=== PATIENT | female | born 1935 | race Caucasian/White ===

== ENCOUNTER 2021-01-25 00:59 | Emergency (ER) | payer MEDICARE, OTHER ==
[~2021-01-25] VITALS: Ht 162.6 cm; Wt 63.5 kg
[~2021-01-25 00:59] MED LIST: ACID CONTROL150 MG PO; ADULT LOW DOSE81 MG PO; ATIVAN1 MG PO; BENAZEPRIL HCL5 MG PO; CALCIUM + D SO1 EACH PO; CLARITIN10 MG PO; FLONASE ALLERG9.9 ML; STOOL SOFTENER1 EAC2 PO; TAZTIA XT240 MG PO
--- OUTSIDE RECORDS SUMMARY | 2021-01-25 01:02 | XMS ---
PreManage Notification: RENATE PHILLIPS Security Stiff Neck Loader Events No recent Security Events currently on file CRITERIA MET - SAIDAP CARE PROVIDERS EDUARD Guerra [facility] Current PHONE: [phone] NIELS TORRES Nurse Practitioner Current PHONE: [phone] aZk has no Care Guidelines for this patient. [place] VISIT COUNT (12 MO.) Minal Fang TOTAL 1 NOTE: Visits indicate total known visits. 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
[2021-01-25] MEDS ORDERED: SOTALOL80 MG PO (01:17)
[2021-01-25] MEDS ORDERED: TORSEMIDE10 MG PO (01:18)
[2021-01-25] MEDS ORDERED: FAMOTIDINE20 MG PO (01:18)
[2021-01-25] MEDS ORDERED: AMLODIPINE BESYL5 MG PO (01:18)
== END 2021-01-25 03:48 | disposition short-term general hospital (02) ==
LOC: ED 00:59
DX: S72.012A Unspecified intracapsular fracture of left femur, initial encounter for closed fracture (principal); W18.30XA Fall on same level, unspecified, initial encounter; I10 Essential (primary) hypertension; Z79.899 Other long term (current) drug therapy; Z20.822 Contact with and (suspected) exposure to COVID-19
CPT/HCPCS: 51702; 73502; 80053; 81001; 85025; 85610; 85730; 99284-25; C9803; J1170; J2405; U0003

== ENCOUNTER 2021-06-25 16:14 | Inpatient (IN) | payer MEDICARE, OTHER ==
[~2021-06-25] VITALS: Ht 162.6 cm; Wt 57.3 kg
[~2021-06-25 16:14] MED LIST changes: +AMLODIPINE BESYL5 MG PO; +FAMOTIDINE20 MG PO; +SOTALOL80 MG PO; +TORSEMIDE10 MG PO
--- OUTSIDE RECORDS SUMMARY | 2021-06-25 16:16 | XMS ---
PreManage Notification: RENATE PHILLIPS Security Burrer Machine Events No recent Security Events currently on file CRITERIA MET - PDMP CARE PROVIDERS JES VALDES Crime Investigator Special Agent Current STEPH Busby PHONE: [phone] EDUARD Guerra [facility] Current PHONE: [phone] ERICA DINH Internal Medicine Current PHONE: Unknown NEERU RILEY Nurse Practitioner Current PHONE: [phone] NIELS TORRES Nurse Practitioner Current PHONE: Unknown MARY EPSTEIN Nurse Practitioner: Family Current PHONE: Unknown BOB NORWOOD Internal Medicine Current PHONE: [phone] ЕКАТЕРИНА MARTINEZ I. Physician Ground Operations Supervisor Current PHONE: Unknown URSULA Nurse Amelia JANG PHONE: [phone] [facility] PHONE: [phone] Zak has no Care Guidelines for this patient. [place] VISIT COUNT (12 MO.) [address] [facility] TOTAL 2 NOTE: Visits indicate total known visits. ED/UCC VISIT TRACKING (12 MO.) 06/25/2021 16:14 VER[facility]NICA [facility]azares [place] TYPE: Emergency COMPLAINT: - GLF 01/25/2021 01:00 VER[facility]NICA C[facility]ares [place] TYPE: Emergency COMPLAINT: - FALL DIAGNOSES: - Other rodent exterminator (current) drug therapy - Fall on same level, unspecified, initial encounter - Essential (primary) hypertension - Unspecified intracapsular fracture of left femur, initial encounter for closed fracture INPATIENT VISIT TRACKING (12 MO.) 02/10/2021 08:53 Carter [facility] [place] TYPE: Surgery DIAGNOSES: - Fracture of unspecified part of neck of left femur, initial encounter for closed fracture - Pain in left hip - Displaced fracture of base of neck of left femur, sequela 01/25/2021 04:42 Carter [facility] TYPE: Inpatient DIAGNOSES: - Left hip fracture - Anxiety disorder, unspecified [id number]
--- NOTE | 2021-06-25 20:15 | NUR ---
PATIENT ARRIVED TO THE UNIT VIA STRETCHER. UNABLE TO MOVE TO BED INDEPENDENTLY. 3PA TO MOVE TO BED. PATIENT UNABLE TO TOLERATED HOB LESS THAN 30 DEGREES. ORIENTED TO PERSON AND PLACE, NOT DATE OR ALL EVENTS LEADING TO ED VISIT. REQUIRES 2L NC, WITH O2 SATS 92-94%. LUNG SOUNDS ARE CLEAR IN UPPER, COARSE CRACKLES IN MID AND LOWER LOBES. HR 80-90'S, PACED. SCHEDULED MEDS PROVIDED WITH PRN TYLNEOL AND MELETONIN PER PATIENT REQUEST. CHRONIC MID/UPPER BACK PAIN NOTED.
--- NOTE | 2021-06-25 21:00 | NUR ---
PATIENT REPORTS BEING MOSTLY INCONTINENT AT BASELINE. PANTS AND THIGH HIGH TEDHOSE REMOVED. PATIENT HAS UNDERWEAR UNDER HER ATTEND, BOTH ARE MODERATELY WET WITH URINE. SMALL PEA SIZED SORE NOTED TO THE LEFT OF HER ISMA AREA. TOTAL AREA IS RED AND STRONG URINE SMELL NOTED. PATIENT HAS 4+ PITTING EDEMA FROM HIPS TO HER FEET. DEPENDENT EDEMA ON HER BACK AND ARMS. CRACKLES IN HER LUNGS. DISCUSSED WITH DR. BRADY RECOMMENDING IV LASIX AND A CAN. ORDERS RECEIVED FOR CAN PLACEMENT AND PLAN TO GIVE PO TORSEMIDE AND MONITOR I&O'S. CAN PLACED WITHOUT ISSUE, PATIENT HAD 40 MLS DARK SUDHIR URINE OUT. BARRIER CREAM APPLIED TO ISMA AREA. FEET ELEVATED ON A PILLOW. PATIENT IN BED WITH HOB ELEVATED. CALL LIGHT IN REACH.
--- NOTE | 2021-06-25 21:30 | NUR ---
DR. BRADY IN TO SEE PATIENT, MINIMAL OUTPUT NOTED. VERBALIZED PLAN TO START BUMEX DRIP.
--- NOTE | 2021-06-25 22:47 | NUR ---
PATIENT RESTING WITH EYES CLOSED. WOKE WHEN STAFF WAS IN ROOM. PATIENT IS ORIENTED TO SELF AND SURROUNDINGS BUT PART OF HER CONVERSATION DID NOT MAKE SENSE IN THE CONTEXT OF THE HOSPITAL. HOWEVER, PATIENT IS CALM AND DENIED ANY NEEDS. REPORTS FEELING COMFORTABLE. VS STABLE. TOLERATING 2L NC. IV BUMEX PER ORDER.
--- NOTE | 2021-06-26 02:23 | NUR ---
PATIENT APPEARS TO BE SLEEPING SOUNDLY. VS STABLE. GOOD RESPONCE TO BUMEX, CAN EMPTIED FOR 800 MLS CLEAR YELLOW URINE. IV SITE WNL.
--- NOTE | 2021-06-26 04:00 | NUR ---
CAN EMPTIED FOR 550 MLS CLEAR URINE. PATIENT APPEARS TO BE SLEEPING SOUNDLY. IV SITE WNL. PATIENT HAD CONVERTED FROM A.PACED TO A.FIB WITH RATE 110-130 WHILE SLEEPING. THEN BACK TO A.PACED WITH RATE 70-80. BP ADEQUATE.
--- NOTE | 2021-06-26 06:17 | NUR ---
PATIENT HAD BLANKETS OFF AND ONE FOOT OFF THE EDGE OF THE BED. THE PATIENT DOESN'T GIVE CLEAR ANSWER ON WHY SHE IS GETTING OUT OF BED. ASSISTED PATIENT TO PUT HER FOOT BACK IN BED. REPOSITIONED UP IN THE BED. PATIENT IS ORIENTED TO SELF AND SURROUNDINGS. UNABLE TO ANSWER QUESTIONS ABOUT THE DATE OR WHY SHE IS HERE. CAN EMPTIED. VS STABLE.
--- NOTE | 2021-06-26 07:21 | EKG ---
[facility] [address] [place] [address] Signed Atrial fibrillation with rapid ventricular response Right bundle branch block Possible Lateral infarct , age undetermined Abnormal ECG When compared with ECG of 10-MAY-2018 14:42, Atrial fibrillation has replaced Sinus rhythm Vent. rate has increased BY 76 BPM Borderline criteria for Lateral infarct are now present Non-specific change in ST segment in Anterior leads T wave inversion more evident in Anterior leads Confirmed by LISA BRADY MD ([id number]) on 06/26/2021 7:21:05 AM Electronically Signed By: LISA BRADY MD 06/26/21720 PATIENT NAME: RENATE PHILLIPS Electrocardiogram DATE OF : 37 PHYSICIAN: LISA BRADY MD REPORT #: [id number] REPORT IS CONFIDENTIAL AND NOT TO BE RELEASED WITHOUT AUTHORIZATION
--- NOTE | 2021-06-26 08:00 | NUR ---
V/S WDL OVERALL, PT REMAINS ON ABOUT 2L O2 NC. PT HAS +4 EDEMA FROM HER HIPS DOWN, PT ALSO HAS DEPENDANT RIGHT ARM, AND ABDOMNINAL EDMEA PRESENT. LUNG BASES HAVE CRACKLES PRESENT, UPPER LOBES CLEAR. RADIAL PULSES +2, PEDAL PULSES +1, FEET WARM TO TOUCH.
--- NOTE | 2021-06-26 10:00 | NUR ---
THIS RN INTO ROOM TO ATTEMPT ASSESSMENT OF THE PATIENT. DOMINGA COLLINS AND BARBI CHANA AT BEDSIDE ASSISTING PATIENT. PER STAFF PATIENT HAS DEMENTIA AND IS UNABLE TO ANSWER QUESTIONS APPROPRIATLY. ADVISED STAFF TO LET THIS RN KNOW IF PATIENT ARRIVES TO VISIT.
--- NOTE | 2021-06-26 10:00 | NUR ---
V/S WDL SO FAR. URINE OUTPUT IS VERY GOOD. PT ATE ALL HER BREAKFAST. OVERALL NO NEW CONCERNS WERE NOTED AT THIS TIME.
--- NOTE | 2021-06-26 12:00 | NUR ---
V/S WDL, PT PLEASANTLY CONFUSED. PT JUST HAD A BM. URINE OUTPUT IS WDL STILL. OVERALL EDEMA HOWEVER IS UNCHANGED SO FAR. LOWER LOBES THAT A RUB PRESENT. PT STILL AT TIMES CAN BE ON ROOM AIR AND DOING WELL AND THEN FOR NO REASON PT WILL DESAT TO 84% AND WILL NEED 4L O2 NC. WILL CONTINUE TO MONITOR.
--- NOTE | 2021-06-26 12:18 | NUR ---
DIRECTOR OF OPERATIONS FOR THERAPY IN CARING FOR PT. WILL CHECK BACK
--- NOTE | 2021-06-26 13:15 | NUR ---
THIS RN OVER TO UNIT. PATIENT HAS NOT ARRIVED TO VISIT AT THIS TIME. WILL ATTEMPT TO CONTACT PATIENT FOR FURTHER ASSESSMENT AND CARE PLANNING.
--- NOTE | 2021-06-26 13:32 | NUR ---
MED REC COMPLETE
--- NOTE | 2021-06-26 13:33 | NUR ---
PATIENT CALLING OUT "I NEED HELP IN HERE." THIS SUPERVISOR ELECTRIC IN TO ASSIST PATIENT, PATIENT SITTING AT SIDE OF BED ATTEMPTING TO "LOOK FOR HER PURSE." PATIENT REDIRECTED TO BED AND REMINDED SHE'S IN THE HOSPITAL. BED ALARM ON FOR SAFETY. ACN EMPTIED. CALL LIGHT IN REACH
[2021-06-26] MEDS ORDERED: TYLENOL325 MG PO (13:45)
[2021-06-26] MEDS ORDERED: COLACE100 MG PO (13:46)
[2021-06-26] MEDS ORDERED: FLUTICASONE PRO16 GM NAS (13:59)
[2021-06-26] MEDS ORDERED: PEPCID20 MG PO (13:59)
[2021-06-26] MEDS ORDERED: MIRALAX17 GM PO (14:00)
--- NOTE | 2021-06-26 14:00 | NUR ---
PT AT THIS TIME IS RESTING IN BED. NO NEW CONCERNS NOTED AT THIS TIME.
[2021-06-26] MEDS ORDERED: METAMUCIL POWD822 G2 PO (14:01)
--- NOTE | 2021-06-26 14:58 | NUR ---
THIGH HIGH X-LARGE KULWINDER-HOSE APPLIED ON BOTH LEGS.
--- NOTE | 2021-06-26 16:00 | NUR ---
PT HAS JUST A FEW CRACKLES IN THE LLL. ALL OTHER LOBES ARE CLEAR, OVERALL EDEMEA IS UNCHANGED STILL. ABD SOUDS PRESENT. PT IS TOLERATING KULWINDER HOSE WELL.
--- NOTE | 2021-06-26 18:00 | NUR ---
PT IN ROOM AND STILL ONLY ORIENTED TO SELF. URINE OUTPUT IS GOOD. PT DOES CALL FREQUENTLY AND NOW ALSO NEEDS A BED ALARMS. PT IS SOMEWHAT RE-DIRECTABLE.
--- NOTE | 2021-06-26 20:00 | NUR ---
PATIENT ATTEMPTING TO EXIT THE BED. CAN PULLED OUT WITH BALLOON INFLATED. PATIENT REPORTS THAT SHE IS LEAVING TO GO MEET HER . PATIENT IS CALM AND REDIRECTED TO SIT IN RECLINER. BED LINENS CHANGED AND PATIENT ABLE TO TRANSFER BACK INTO THE BED. PATIENT REORIENTED PARTIALLY AND AGREEABLE. TELE LEADS REPLACED. PATIENT CONTINUES TO REQUIRE 5L NC. O2 SATS 95% AND RR 16. HR 80-90'S. FEET ELEVATED ON A PILLOW, KULWINDER HOSE IN PLACE. PATIENT'S LUNG SOUNDS ARE DIMINSIHED WITH CRACKLES IN ANA LOWER LOBES. 4+ PITTING EDEMA NOTED TO FROM HIPS DOWN.
--- NOTE | 2021-06-26 21:15 | NUR ---
PATIENT UP TO THE BSC TO VOID. PATIENT REQUIRES 1-2 PERSON ASSIST. VOIDS 200 MLS. RETURNED TO BED. SLIGHTLY SOB AND O2 SATS 86% ON 6L NC. PATIENT POSITIONED IN BED FOR COMFORT. HOB ELEVATED. RECOVERED AFTER A COUPLE MINS. EVENING MEDS PROVIDED. VS STABLE. TITRATED BACK TO 4L NC. CALL LIGHT AND BED ALARM ACTIVE. LIGHTS DIMMED.
--- NOTE | 2021-06-26 21:58 | NUR ---
PATIENT UP AGAIN TO [facility]. VOID 150ML. PATIENT IS WEAK AND GETS SOB WITH ACTIVITY. DESAT TO 85% ON 6L NC. DISCUSSED WITH MD TO REPLACE CAN. PATIENT AGREEABLE. CAN PLACED WITHOUT ISSUE, PATIENT TOLERATED WELL. 150MLS URINE OUT RIGHT AWAY. STAT-LOCK PLACED. ATTENDS ON AND SECURE. REMINDED PATIENT TO LEAVE CAN IN PLACE. PATIENT IS DIRECTABLE AND AGREEABLE. OXY MASK AT 4L PLACED OVER NC. PATIENT'S O2 SATS IMPROVED TO 99%. TITRATED TO 2L NC AND 4L OXY MASK.
--- NOTE | 2021-06-26 22:33 | NUR ---
patient's o2 sats 100% on 4lL oxy mask and 2l nc. titrated to 3L oxymask and 2L nc. patient resting in bed. Calm and denied any needs. call light in reach. bed alarm active.
--- NOTE | 2021-06-26 23:18 | NUR ---
PATIENT PULLED IV SITE. REMOVED O2 SAT PROBE AND OXYGEN. ATTEMPTS TO REORIENT PATIENT ARE MINIMALLY EFFECTIVE. FAILED ATTEMPTS TO RESTART IV SITE BY THIS RN AND TAHIR COLLINS. KELLY SUPERVIOR CALLED.
--- NOTE | 2021-06-26 23:51 | NUR ---
IV site estamblished by García COLLINS. SKIN TEARS ON LEFT FOREARM REDRESSED WITH ADAPTIC GAUZE AND NON-ADHEARANT PADS SECURED WITH COBAN. MULTIPLE IV ATTEMPTS ON RIGHT FOREARM, PRESSURE WITH 2X2 GAUZE UNTIL DONE BLEEDING. COVERED WITH BANDAIDS. IV SITE SECURED WITH COBAN, DISCUSSED IMPORTANCE OF IV SITE WITH PATIENT AND CONTINUE TO DIRECTLY OBSERVE FROM NURSES STATION. 3L OXYMASK IN PLACE. PATIENT ORIENTED TO SELF ONLY.
--- NOTE | 2021-06-27 02:17 | NUR ---
PATIENT RESTING IN BED WATCHING TV. PATIENT CONTINUES TO BE ORIENTED TO SELF ONLY. DENIES ANY CONCERNS. APPEARS COMFORTABLE. IV SITE WNL, BUMEX PER ORDER. LARGE AMOUNTS OF DILUTE OUTPUT NOTED IN CAN.
--- NOTE | 2021-06-27 04:00 | NUR ---
PATIENT HAS SLEPT A MINIMAL AMOUNT. LESS RESTLESS BUT CONTINUES TO BE CONFUSED. ORIENTED TO SELF ONLY. ENCOURAGED PATIENT TO TRY AND SLEEP. VS STABLE. LARGE URINE OUTPUT. IV BUMEX PER ORDER, SITE WNL. PATIENT TOLERATING 2L OXYMASK.
--- NOTE | 2021-06-27 05:41 | NUR ---
PATIENT WEIGHT RECORDED WITH ONLY 2 PILLOWS AND GREEN BLANKET AND SHEET ON BED. PATIENT APPEARS TO BE SLEEPING OFF AND ON.
--- NOTE | 2021-06-27 06:41 | NUR ---
DISCUSSED PATIENT'S LAB FINDINGS AND OUTPUT WITH . ORDERS TO HOLD BUMEX AT THIS TIME. BUMEX STOPPED, IV SITE FLUSHED. PATIENT SLEEPING OFF AND ON. VS STABLE. CAN EMPTIED.
--- NOTE | 2021-06-27 07:30 | NUR ---
REPORT RECIEVED, CARE OF PATIENT ASSUMED AT THIS TIME.
--- NOTE | 2021-06-27 08:44 | NUR ---
IN PT ROOM WITH DR BRADY TO DISCUSS PT'S HEART RATE AND PLAN OF CARE. PT ALERT BUT REMAINS DISORIENTED. LOWER LEG EDEMA HAS DECREASED OVER THE LAST 12 HOURS. PT IN AFIB WITH HEART RATE IN THE 110-130S AT REST. PT UP IN CHAIR FOR BREAKFAST. AM CARES PERFORMED. PLAN OF CARE ESTABLISHED. CALL LIGHT WITHIN REACH. WILL CONTINUE TO MONITOR.
--- NOTE | 2021-06-27 09:14 | NUR ---
PT HEART RATE DOWN INTO THE 70S IN A PACED RHYTHM. SPO2 = 100%. CALL LIGHT WIHTN REACH WILL CONITNUE TO MONITOR.
--- NOTE | 2021-06-27 10:40 | NUR ---
PT WORKING WITH PHYSICAL THERAPY AT THIS TIME. ABLE TO AMBULATE IN ROOM WITH 4WW. BACK IN CHAIR. DENIES FURTHER NEEDS AT THIS TIME.
--- NOTE | 2021-06-27 11:31 | NUR ---
PT ASLEEP IN RECLINER, BREATHING EVN AND UNLABORED. HR IN THE 70S PACED, OCCASIONALLY PTS HEART RATE GOES IN TO A AFIB RHYTHM AND HEART RATE INCREASES TO 100-120. SPO2 = 100% ON 2 L NC. CALL LIGHT WITHIN REACH. WILL CONTINUE TO MONITOR.
--- NOTE | 2021-06-27 11:58 | NUR ---
IN ROOM TO COMPLETE ASSESSMENT. PT REMAINS ALERT BUT DISORIENTED. CRACKLES AUSCULTATED IN BOTH LOWER AIR FEILDS. PT DENIES PAIN OR DISCOMFORT. SPO2 = 96% ON 2 L NC. PLAN OF CARE FOR AFTERNOON ESTABLISHED. CALL LIGHT WITHIN REACH. WILL CONTINUE TO MONITOR.
--- NOTE | 2021-06-27 12:58 | NUR ---
pt up in chair watching television. call light within reach. Denies further need at this time.
--- NOTE | 2021-06-27 15:08 | NUR ---
PT AMBULATED TO END OF HALLWAY WITH 4WW. HEART RATE MAINTAINED IN A PACED RHYTHM WITH RATE BETWEEN 60-80 WITH EXERTION. PT DENIES SHORTNESS OF BREATH WITH ACTIVITY AND ABLE TO MAINTAIN CONVERSATION WHILE AMBULATING. PT NOW BACK IN CHAIR. ASSESSMENT REMAINS UNCHANGED. CALL LIGHT WITHIN REACH. DENIES FURTHER NEEDS AT THIS TIME.
--- NOTE | 2021-06-27 16:55 | NUR ---
PT OUT OF CHAIR, PULLING OFF LEADS, STATES SHE WANTS TO "GET THE HELL OUT OF HERE" ASSISTED PT BACK CHAIR. ATTEMPTED TO REORIENT PT AT THIS TIME. CALL LIGHT WITHIN REACH AND VISIBLE FROM NURSE STATION. WILL CONTINUE TO MONITOR.
--- NOTE | 2021-06-27 17:56 | NUR ---
ASSISTED PT WITH AMBULATING PT IN THE HALLWAY AND INTO BED. KULWINDER HOSE REMOVED PER PT REQUEST. LEGS PLACED ON A PILLOW. BED ALARM IN PLACE, CALL LIGHT WITHIN REACH. WILL CONTINUE TO MONITOR.
--- NOTE | 2021-06-27 20:46 | NUR ---
PATIENT PROVIDED WITH EVENING MEDS. ORIENTED TO SELF ONLY. CALM AND FOLLOWS DIRECTIONS. LUNG SOUNDS ARE CLEAR IN UPPERS, DIMINISHED FINE CRACKLES IN ANA LOWER/MID LOBES. PATIENT TOLERATING 2L NC WHILE SLEEPING, ROOM AIR WHILE AWAKE. VS STABLE. HR 110 AFIB. PATIENT TURNED IN BED, COCCYX VISUALIZED. RED AREA TO LEFT OF COCCYX BLANCHABLE. AREA TO RIGHT OF ANUS IS NON-BLANCHABLE BUT NO OPEN AREA. LARGE COCCYX ALLYVEN PLACED. PATIENT REPOSITIONED IN BED WITH HOB ELEVATED TO 40 DEGREES PER REQUEST AND PILLOW UNDER LEFT HIP. BOTH FEET ELEVATED. 3+ EDEMA NOTED, IMPROVED SIGNIFICANTLY, EDEMA FROM KNEES DOWN. IV SITE FLUSHED EASILER. SKIN TEARS ON LEFT FOREARM COVERED. BARRIER CREAM APPLIED TO SORE ON LEFT GROIN AREA. ABD IS SOFT, NO NAUSEA. PATIENT REPORTS GENERAL AND PAIN PAIN, 4/10. PRN TYLENOL. BED ALARM ACTIVE. CALL LIGHT IN REACH. LIGHTS DIMMED TP PROMOTE SLEEP.
--- NOTE | 2021-06-27 22:54 | NUR ---
PATIENT HAS NOT SLEPT OR BEEN INTERESTED IN TRYING TO SLEEP TONIGHT. LIGHTS HAVE BEEN DIMMED AND STIMULATION LIMITED. PATIENT IS ORIENTED TO SELF ONLY AND TALKING SOMEWHAT ANXIOUSLY ABOUT HER PLANS FOR THE DAY. UNABLE TO REORIENT. PATIENT'S HR 110-130'S, AFIB AT REST. NOTIFIED. ONE TIME DOSE BENADRYL RECIEVED TO ENCOURAGE SLEEP. VERIFIED VIA REPEAT BACK.
--- NOTE | 2021-06-27 23:05 | NUR ---
PATIENT REPOSITIONED TO HER LEFT SIDE. SMALL CUP OF DECAF TEA PROVIDED PER REQUEST. PATIENT PROVIDED WITH BENADRYL AND ENCOURAGED TO REST. PATIENT STATES "WELL I'M NOT GOING TO SLEEP BUT ILL BE QUIET". DISCUSSED THE PLAN TO REEVALUATE IN 30MINS.
--- NOTE | 2021-06-28 | NUR ---
PATIENT CONTINUES TO BE CONFUSED, NOT WANTING TO SLEEP. FREQUENT REMINDERS TO LEAVE PLUS OX IN PLACE AND NOT PULL AT LEADS. PATIENT EASY TO REDIRECT. PATIENT STATES SHE IS NOT ABLE TO SLEEP. ENOCURAGED PATIENT TO TRY. CALL LIGHT IN REACH.
--- NOTE | 2021-06-28 02:26 | NUR ---
PATIENT CONTINUES TO BE AWAKE IN ROOM. CALLING OUT OCCATIONAL. FREQUENTLY ENCOURAGED PATIENT TO SLEEP. LIMITED STIMULATION POSSIBLE.
--- NOTE | 2021-06-28 04:30 | NUR ---
PATIENT CONTINUES TO REST IN BED. DENIES ANY NEEDS WHEN STAFF IN THE ROOM. ORIENTED TO SELF ONLY. VS STABLE. REQUIRES 2L NC OCCATIONALLY DUE TO DESAT TO 85-86% ON ROOM AIR.
--- NOTE | 2021-06-28 06:00 | NUR ---
PATIENT APPEARS TO BE SLEEPING. CAN EMPTIED. VS STABLE. 2L NC IN PLACE. CALL LIGHT IN REACH.
--- NOTE | 2021-06-28 08:00 | NUR ---
REPORT RECEIVED FROM NIGHT RN AND PT. CARE RESUMED. PT. IS DROWSY BUT AWAKENS EASILY TO VOICE. ON 2L NC AND 02 SAT IS 94%. ORIENTED TO SELF ONLY. SHE DENIES PAIN. +2 EDEMA PRESENT BLE. CRACKLES PRESENT IN BASES OF LUNGS. P.T. IN THE ROOM TO WORK WITH PT.
--- NOTE | 2021-06-28 09:27 | NUR ---
PT. UP IN THE CHAIR EATING BREAKFAST. DENIES NEEDS AT THIS TIME.
--- NOTE | 2021-06-28 10:16 | NUR ---
PT. ASSISTED WITH REPOSITIONING IN THE CHAIR. CATH EMPTIED OF 300ML DILUTE URINE. LEFT RESTING WITH CURTAIN OPEN AND CALL LIGHT IN REACH.
--- NOTE | 2021-06-28 10:52 | NUR ---
REPORT GIVEN TO AQUEDUCT AND RESERVOIR KEEPER AND ALL BELONGINGS TRANSFERRED TO ROOM 111
--- NOTE | 2021-06-28 11:13 | NUR ---
pt transferred with all belongings via chair to room 111. craft coordinator present and assisted pt. to bed.
--- NOTE | 2021-06-28 11:30 | NUR ---
THE PHYSICAL THERAPIST HELPED ME PULL HER UP IN BED AND ALSO PUT PILLOWS UNDER HER HIPS AND ARM.
--- NOTE | 2021-06-28 11:55 | NUR ---
TRANSPORTED FROM CCU IN CHAIR. ASSESSMENT COMPLETED. DENIES PAIN. CONFUSED AT BASELINE.
--- NOTE | 2021-06-28 17:34 | NUR ---
Patient sitting up in bed, eating supper. Rodriguez continues to put out straw colored urine. Denies needs. Call light in reach. Bed rails up X2.
--- NOTE | 2021-06-28 19:10 | NUR ---
SHIFT REPORT RECEIVED FROM VIKTOR COLLINS. PT RESTING IN BED, EYES CLOSED. RR EVEN, UNLABORED. CALL LIGHT IN REACH.
--- NOTE | 2021-06-28 21:53 | NUR ---
V/S AND I&O'S DONE AND CHARTED BY PRIMARY RN YESY. CAN CARE DONE. PATIENT REPOSITIONED.
--- NOTE | 2021-06-28 22:07 | NUR ---
ASSESSMENT COMPLETED. PT ORIENTED TO PERSON AND PLACE. UPPER LOBES EXPIRATORY WHEEZING AND DIM LOWER LOBES. IV WNL, FLUSHED WELL. ABD SOFT, NONTENDER, BOWEL TONES ACTIVE. CMS INTACT. BLE EDEMA 2+. HEART TONES IRREGULAR. SCHEDULED MED PROVIDED. ICE WATER PROVIDED. NO OTHER NEEDS. CALL LIGHT IN REACH.
--- NOTE | 2021-06-28 23:50 | NUR ---
PT RESTING IN BED, WATCHING TV. NO NEEDS AT THIS TIME. CALL LIGHT IN REACH.
--- NOTE | 2021-06-29 01:52 | NUR ---
PT RESTING IN BED, EYES CLOSED. RR EVEN, UNLABORED. CALL LIGHT IN REACH.
--- NOTE | 2021-06-29 03:00 | NUR ---
PT RESTING IN BED, EYES CLOSED. RR EVEN, UNLABORED. CALL LIGHT IN REACH.
--- NOTE | 2021-06-29 05:45 | NUR ---
I&O AND DW WEIGHT COMPLETED. PT REPOSITIONED. NO OTHER NEEDS. CALL LIGHT IN REACH.
--- NOTE | 2021-06-29 08:58 | NUR ---
Morning medications administered per provider order. Patient awake, pleasantly confused. Patient transitioned to chair for breakfast, tolerated ambulation well with standby assist using fww. Patient denies pain at this time. Patient on 2L of oxygen per nc, respirations non labored. Patient denies needs. Personal supplies and call light within reach.
--- NOTE | 2021-06-29 09:08 | NUR ---
ALANIS FOR PATIENT LATOSHA TO DISCUSS DISCHARGE PLAN.
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
--- NOTE | 2021-06-29 09:45 | NUR ---
Patient is in chair with call light in reach.
--- NOTE | 2021-06-29 10:23 | NUR ---
Patient sitting up in chair looking out the window, no distress. Fresh water at bedside. Personal supplies and call light within reach.
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
--- NOTE | 2021-06-29 15:08 | NUR ---
Patient is in chair with call light in reach.
--- NOTE | 2021-06-29 17:22 | NUR ---
Patient's resperations are 28. Patient is in bed with call light in reach. Patient says she's not short of breath.
--- NOTE | 2021-06-29 19:10 | NUR ---
RECEIVED REPORT FROM DAY SHIFT RN. PATIENT IS RESTING IN BED TALKING ON THE PHONE. BED ALARM ON FOR SAFETY.
--- NOTE | 2021-06-29 21:41 | NUR ---
PATIENT ASSESMENT COMPLETED. PATIENT DENIES ANY PAIN. VITALS TAKEN AND RECORDED. INTAKE AND OUTPUT RECORDED. CAN EMPTIED AND CAN CARE COMPLETED. PATIENT REPOSITIONED IN BED. FEET ELEVATED ON PILLOWS. PATIENT IS CONFUSED. PATIENT DENIES ANY NEEDS. CALL LIGHT IN REACH. BED ALARM ON FOR SAFETY.
--- NOTE | 2021-06-29 22:25 | NUR ---
BED ALARM SOUNDING, pt SITTING UP IN BED. REORIENTATION PROVIDED TO LOCATION, EVENT, TIME OF DAY. pt ASSISTED TO RECLINE HOB SLIGHTLY. LIGHTS OFF IN ROOM. BED ALARM ON.
--- NOTE | 2021-06-29 22:54 | NUR ---
PATIENT IS RESTING IN BED WITH EYES CLOSED, RR 17. CALL LIGHT IN REACH. BED ALARM ON FOR SAFETY. CALL LIGHT IN REACH.
--- NOTE | 2021-06-30 00:48 | NUR ---
PATIENT IS RESTING IN BED WITH EYES CLOSED, RR 15. PATIENTS BED ALARM IS ON FOR SAFETY. CALL LIGHT AND BELONGINGS ARE WITHIN REACH.
--- NOTE | 2021-06-30 02:54 | NUR ---
PATIENTS VITALS TAKEN AND RECORDED. PATIENT REPOSITIONED IN BED. SCHEDULED MEDICATION GIVEN PER ORDER. PATIENT PROVIDED WITH SIPS OF WATER. PATIENT DENIES ANY NEEDS. CALL LIGHT IN REACH. BED ALARM ON FOR PATIENT SAFETY.
--- NOTE | 2021-06-30 05:42 | NUR ---
PATIENTS VITALS TAKEN AND RECORDED. CAN EMPTIED AND CAN CARE COMPLETED. PATIENTS INTAKE AND OUTPUT RECORDED. DAILY WEIGHT RECORDED. PATIENT PROVIDED WITH SIPS OF WATER. PATIENT REPOSITIONED. PATIENT DENIES ANY NEEDS. PATIENT IS ON 1L VIA NC. PATIENTS CALL LIGHT AND BELONGINGS ARE WITHIN REACH. BED ALARM ON FOR SAFETY.
--- NOTE | 2021-06-30 07:30 | NUR ---
Patient sleeping in bed, no distress, respirations even and non labored. Bed alarm intact. Personal supplies and call light within reach.
--- NOTE | 2021-06-30 07:45 | NUR ---
PT WAS ASLEEP IN BED. WHITEBOARD WAS UPDATED. CALL LIGHT IS WITHIN REACH. WILL CHECK BACK IN LATER.
--- NOTE | 2021-06-30 08:44 | NUR ---
THIS MUSHROOM GROWTH MEDIA MIXER GOT PT UP INTO THE RECLINER. PT IS EATING BREAKFAST. BED WAS MADE. CALL LIGHT IS WITHIN REACH. CHAIR ALARM IS ON. NO FURTHER NEEDS AT THIS TIME.
--- NOTE | 2021-06-30 10:08 | NUR ---
Dr. Story notified regarding patient's heart rate. Patient's heart rate ranging from 69-133bpm per tele, non sustained. Patient sitting in chair watching tv, no notable distress. Dr. Story to review patient's medications.
--- NOTE | 2021-06-30 11:50 | NUR ---
Spoke with Maria Esther who is very confused, but pleasant. I will contact spouse for needs as per report there was concern for pt to get home and also no meds were filled in nearly a month as his BMW is broken down. Received call from CHW, Lilli, and she did speak with Filemon and he is insistant pts meds be picked up and delivered prior to pt arriving home. She attempted to discuss taxi tickets and dollar ride with him, but he was not interested. He also stated a friend could take him for groceries.
--- NOTE | 2021-06-30 13:09 | NUR ---
Patient in chair watching tv, pleasantly confused. Patient does not call staff appropriately, attempting to get up out of chair several times without help. Patient unsteady on feet. Education provided to patient. Nati alarm intact.
--- NOTE | 2021-06-30 14:27 | NUR ---
Patient placed to room air, sp02 93% at this time.
--- NOTE | 2021-06-30 18:19 | NUR ---
Washed patient's hair this evening, pt reported she felt much better. Patient denies pain. No needs at this time. Personal supplies and call light within reach.
--- NOTE | 2021-06-30 19:34 | NUR ---
RECEIVED REPORT FROM DAY SHIFT RN. PATIENT HAD LARG LOOSE BM IN BED. PATIENT CHANGED, NEW BEDDING, ISMA CARE, AND CAN CARE COMPLETED. PATIENT REPOSITONED IN BED. PATIENT TOLERATED ACTIVITY WELL. NO FURTHER NEEDS NOTED. CALL LIGHT IN REACH. BED ALARM ON FOR SAFETY.
--- NOTE | 2021-06-30 20:00 | NUR ---
cleaned patient from having watery bowel movement. v/s and i&o's and mendoza care done. patient repositioned. bed alarm on.
--- NOTE | 2021-06-30 20:11 | NUR ---
PATIENT ASSESMENT COMPLETED. PATIENT WAS INCONTINENT OF STOOL. VITALS TAKEN AND RECORDED. CAN EMPTIED AND CAN CARE COMPLETED. INTAKE AND OUTPUT RECORDED. PATIENT DENIES ANY [AIN OR SOB. PATIENT REPOSITIONED IN BED. PATIENT REMAINS ON 1L VIA NC. PATIENT IS DISORIENTED ATTEMPTED TO REORIENT. PATIENT PROVIDED WITH SIPS OF WATER. NO FURTHER NEEDS NOTED. CALL LIGHT IN REACH. BED ALARM ON FOR SAFETY.
--- NOTE | 2021-06-30 23:29 | NUR ---
PATIENT REPOSITIONED IN BED. PATIENT DENIES ANY NEEDS. ATTEND IS DRY. CALL LIGHT IN REACH. BED ALARM ON FOR SAFETY.
--- NOTE | 2021-07-01 02:09 | NUR ---
PATIENTS VITALS TAKEN AND RECORDED. PATIENTS SCHEDULED MEDICATION GIVEN PER ORDER. PATIENT REPOSITIONED IN BED. ATTEND IS DRY. PATIENTS CAN EMPTIED. PATIENT DENIES ANY NEEDS. PATIENT PROVIDED WITH SIPS OF WATER. CALL LIGHT AND BED ALARM ON FOR SAFETY.
--- NOTE | 2021-07-01 04:16 | NUR ---
PATIENT IS RESTING IN BED WITH EYES CLSOED, RR 15. CALL LIGHT IN REACH. BED ALARM ON FOR SAFETY.
--- NOTE | 2021-07-01 05:42 | NUR ---
PATIENTS VITALS TAKEN AND RECORDED. INTAKE AND OUTPUT RECORDED. CAN EMPTIED. BED WEIGHT OBTAINED WITH 1 PILLOW AND RECORDED. PATIENT REPOSITIONED IN BED. TITRATED TO 0.5L VIA NC. PATIENT DENIES ANY FURTHER NEEDS. CALL LIGHT IN REACH. BED ALARM ON FOR SAFETY.
--- NOTE | 2021-07-01 07:38 | NUR ---
PT WAS ALSEEP IN BED. CALL LIGHT IS WITHIN REACH. WHITEBOARD IS UPDATED. WILL CHECK BACK IN LATER.
--- NOTE | 2021-07-01 09:01 | NUR ---
RN IN ROOM TO DO MORNING ASSESSMENT, PT IN BED, DID NOT WANT TO TRY GETTING UP FOR BREAKFAST, REPOSTIONED UP IN BED, HELPED CUT PANCAKE, DENIES ANY PAIN ONLY ORIENTED TO PERSON , ON TELE PACED, ON 0.5 l NC
--- NOTE | 2021-07-01 10:00 | NUR ---
Pt. remains pleasantly confused. Will attempt to call spouse today to check for needs at home.
--- NOTE | 2021-07-01 11:45 | NUR ---
pt in recliner had a large BM, pt helped into the shower and helped get cleaned up, did not want her hair washed.
--- NOTE | 2021-07-01 12:21 | NUR ---
PATIENT REMAINS CONFUSED DUE TO DEMENTIA. DIET EDUCATION ON LOW-SODIUM DIET NOT APPROPRIATE AT THIS TIME. WILL CONTINUE TO MONITOR.
--- NOTE | 2021-07-01 13:39 | NUR ---
rn in room to give meds , pt sitting in chair, denies any needs at the moment.
--- NOTE | 2021-07-01 14:05 | NUR ---
PT SITTING IN CHAIR, EATING LUNCH AND WATCHING TV. PT SMILED, INFORMED ME SHE WAS ENJOYING HER LUNCH AND A LITTLE PEACE AND QUIET. GAVE BLESSING AND WILL FOLLOW
--- NOTE | 2021-07-01 16:17 | NUR ---
PLACED ON BIPAP PER DR. SAEZ FOR LUNG RECRUITMENT. TOOTIE WELL WOB OK AWAKE AND PROTECTING OWN AIRWAY AT THIS TIME.
--- NOTE | 2021-07-01 17:24 | NUR ---
rn in room to give IV lasix pt sitting in chair wacthing tv and eating dinner denies any needs at the moment
--- NOTE | 2021-07-01 19:35 | NUR ---
SHIFT REPORT RECEIVED FROM EVONNE COLLINS. PT UP IN CHAIR. NO NEEDS AT THIS TIME. CALL LIGHT IN REACH.
--- NOTE | 2021-07-01 20:35 | NUR ---
PER ORDER, TELE REMOVED. PT UP IN RECLINER, TALKING ABOUT BEING ON "LAND", SEARCHING FOR A NEW DR. ORIENTATED TO PLACE, SHE REPLIED, IT SOUNDED FAMILAR, AFTER ALL SHE WENT TO SCHOOL. NO OTHER NEEDS.
--- NOTE | 2021-07-02 00:12 | NUR ---
PT RESTING IN BED, EYES CLOSED. RR EVEN, UNLABORED. NC @ 1L. CALL LIGHT IN REACH.
--- NOTE | 2021-07-02 01:00 | NUR ---
PT AWAKE IN ROOM. PT REPOSITIONED. NO OTHER NEEDS. CALL LIGHT IN REACH.
--- NOTE | 2021-07-02 03:34 | NUR ---
ASSESSMENT COMPLETED. PT ORIENTED TO PERSON ONLY. LUNGS CLEAR IN UPPER LOBES AND FINE CRACKLES IN LOWER LOBES. HEART TONES HAVE MURMUR. ABD SOFT, NONTENDER, BOWEL TONES ACTIVE. SCATTERED BRUISING AND ABRASIONS NOTED. IV WNL. PT UP TO BSC ABD BACK TO BED. IV WNL. NO OTHER NEEDS. CALL LIGHT IN REACH.
--- NOTE | 2021-07-02 03:56 | NUR ---
ASSESSMENT COMPLETED. PT ORIENTED TO PERSON ONLY. LUNGS CLEAR IN UPPER LOBES AND FINE CRACKLES IN LOWER LOBES. HEART TONES HAVE MURMUR. ABD SOFT, NONTENDER, BOWEL TONES ACTIVE. SCATTERED BRUISING AND ABRASIONS NOTED. IV WNL. NO OTHER NEEDS. CALL LIGHT IN REACH.
--- NOTE | 2021-07-02 05:05 | NUR ---
VS, I&O AND DW COMPLETED. PT REPOSITIONED. ICE WATER PROVIDED. NOOTHER NEEDS. CALL LIGHT IN REACH.
--- NOTE | 2021-07-02 07:15 | NUR ---
report recieved from loan workout officer RN, pt sleeping on 1L nc, RR even and non labored, no needs at the moment. bed alarm on.
--- NOTE | 2021-07-02 10:33 | NUR ---
Dr Story notified of pt being 95/52 map 62 , did give iv lasix, per provider monitor for now.
--- NOTE | 2021-07-02 10:42 | NUR ---
Patient is in a chair with call light.
--- NOTE | 2021-07-02 10:45 | NUR ---
pt working with pt, daughter is here to visit updated on status and all questions answered no other needs at the moment
--- NOTE | 2021-07-02 12:00 | NUR ---
went in to check on pt, she had pulled out her IV. and ripped off her bandages.
--- NOTE | 2021-07-02 12:45 | NUR ---
Notified by Dr. Story he will discharge this pt today. Updated pt will need meds as did not fill meds following dc from [facility]. Dr will discuss with pharmacy and ask for med to be filled prior to dc and go home with pt. I called and spoke with the spouse and he states his car is not running and he will need medications filled or delivered. Updated pharmacy will fill medications 1 time, but he will need to find how to get his meds next month. Filemon states he will take a taxi. I asked how he would like Maria Esther to transport home and he states he cannot get her as he cannot leave the dog alone. Informed we can send by taxi, but we are concerned due to her dementia. He states they only live 3 blocks away and can he can see the hospital from his apartment. He asks nurses call when she leaves and he will meet her in the parking lot of their apartment. He denies other needs. Charge nurse updated.
--- NOTE | 2021-07-02 12:49 | NUR ---
[facility] wound care nurse redressed skim tears on L arm, bacitracin and allyven applied can leave on for 7 days
--- NOTE | 2021-07-02 12:54 | NUR ---
PT SITTING IN CHAIR, WATCHING TV.GREETED HER, SHE RESPONDED. DID NOT KNOW IF SHE HAD HAD LUNCH TODAY. HER RESPONSES ARE ALWAYS SURPRISING, SHE MENTIONED THAT STAFF HAD NOT BEEN IN. SHE THEN WENT ON TO INFORM ME THAT "THEY COME IN AN THEN LEAVE FOR STRANGE REASONS. MAKES A PERSON WONDER". PT'S CONFUSION IS BECOMING MORE APPARENT. LET PT KNOW I WOULD FOLLOW UP. PT THANKED ME. SHARED THIS INFO WITH COLOR BLENDER DANITZA. WILL FOLLOW NEEDED
--- NOTE | 2021-07-02 13:30 | NUR ---
dr zuleta in rounding on pt per she looks good hold 1300 lasix and pull mendoza out. tolerating Room air.
[2021-07-02] MEDS ORDERED: METOPROLOL SUC100 MG PO (13:36)
[2021-07-02] MEDS ORDERED: STIMULANT LAXA1 EACH PO (13:40)
[2021-07-02] MEDS ORDERED: TORSEMIDE10 MG PO (13:40)
--- NOTE | 2021-07-02 13:46 | NUR ---
CAN REMOVED PER PROVIDER ORDER. TOLERATED FINE
--- NOTE | 2021-07-02 14:29 | NUR ---
Charge nurse took a muanual BP 78/39.
--- NOTE | 2021-07-02 15:00 | NUR ---
pt with low bp, 750cc fluid bolus given, bp reacted and pressures are better Dr Story aware.
== END 2021-07-02 16:16 | disposition home or self-care (01) | DRG 291 ==
LOC: ED 16:14 → CCU 18:42 → MS 06-28 11:05
PROVIDERS: ADMIT Internal Medicine; ATTEND Internal Medicine
DX: I11.0 Hypertensive heart disease with heart failure (principal); I50.31 Acute diastolic (congestive) heart failure; J98.11 Atelectasis; I48.20 Chronic atrial fibrillation, unspecified; Z90.710 Acquired absence of both cervix and uterus; Z91.14 Patient's other noncompliance with medication regimen; G30.9 Alzheimer's disease, unspecified; F02.80 Dementia in other diseases classified elsewhere, unspecified severity, without behavioral disturbance, psychotic disturbance, mood disturbance, and anxiety; Z85.01 Personal history of malignant neoplasm of esophagus; Z95.0 Presence of cardiac pacemaker; Z79.899 Other long term (current) drug therapy; Z90.13 Acquired absence of bilateral breasts and nipples; Z98.890 Other specified postprocedural states; I48.0 Paroxysmal atrial fibrillation; Z20.822 Contact with and (suspected) exposure to COVID-19; D64.9 Anemia, unspecified
CPT/HCPCS: 71045; 80048; 80053; 81001; 83735; 83880; 85025; 93005; 93010; 93306; 94660; 94760; 97110; 97116; 97161; 97530; C9803; J1120; J1650; J1940; J3490; J7030; J7040; Q0163; U0003